=== PATIENT | male | born 1965 | race Two or more races ===

== ENCOUNTER 2016-12-20 19:20 | Emergency (ER) | payer OTHER ==
[~2016-12-20] VITALS: Ht 177.8 cm; Wt 95.3 kg
[2016-12-20 19:41] VITALS: BP 131/89
[2016-12-20] MEDS ORDERED: TdaP Vaccine 0.5ml Syr IM ONE (19:45)
[2016-12-20] MEDS ORDERED: IBUPROFEN600 MG ORAL (20:44)
[2016-12-20 20:47] VITALS: BP 131/89
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
== END 2016-12-20 20:47 ==
LOC: EDBD 19:20 → EMR 19:46
DX: S00.83XA Contusion of other part of head, initial encounter (principal); S01.112A Laceration without foreign body of left eyelid and periocular area, initial encounter; Z23 Encounter for immunization; Y04.2XXA Assault by strike against or bumped into by another person, initial encounter; J01.90 Acute sinusitis, unspecified
CPT/HCPCS: 70450; 70486; 90471; 90715